=== PATIENT | female | born 1995 | race Caucasian/White ===

== ENCOUNTER 2016-11-28 10:49 | Emergency (ER) | payer OTHER ==
[~2016-11-28] VITALS: Ht 170.2 cm; Wt 95.5 kg
[2016-11-28 11:05] VITALS: BP 135/89; PULSE 91; RESP 18; O2SAT 99
[2016-11-28] MEDS ORDERED: 0.9% Sodium Chloride 1,000 ML IV ONE (11:21)
[2016-11-28] MEDS ORDERED: Ondansetron 2 mg/mL 2 mL Inj IVPUSH ONE (11:25)
--- NOTE | 2016-11-28 11:27 | ED.REPORT ---
HPI-Abd Pain F Under 38 Date of Service Nov 28, 2016 ED Provider: Dung Mcclain MD History of Present Illness: 21 female here for nausea, abdominal pain and diarrhea. Onset 3 days ago. At this point is having diarrhea 5-6 times a day, loose liquid stools. No vomiting. Tried to eat applesauce but it made her stomach upset. Is tolerating small sips of water. No fever. No cough, chest pain, shortness of breath, URI symptoms. No Urinary symptoms. Is not sexually active. LMP 3 weeks ago. No vaginal discharge. Patient is a nurse on a telemetry floor in [place] and has recently had patient's with GI symptoms. Nursing Notes Stated Complaint: NAUSEA,ABD PAIN,DIARRHEA Chief Complaint: Female Abdominal Pain Nursing Notes Reviewed: Yes Allergies: Coded Allergies: azithromycin (Verified Allergy, Unknown, 11/28/16) codeine (Verified Adverse Reaction, Unknown, upset stomach, 11/28/16) Scheduled Loperamide (Loperamide) 2 Mg Capsule 2 MG PO Q6H Scheduled PRN Hydrocodone-Acetaminophen 5-325 mg (Hydrocodone-Acetaminophen 5-325 mg) 1 Each Tablet 1 TABLET PO Q4H PRN PRN For Pain Ondansetron ODT (Zofran ODT) 4 Mg Tablet 4 MG PO Q4H PRN PRN For Nausea General Time Seen by MD: 11:15 Chief Complaint Abdominal pain, Diarrhea moderate, Nausea Hx Obtained From: Patient Arrived By: Walk-in Onset Occurred: 3 days ago Context of Onset: Eating Symptom Duration: Intermittent Location: : Abdomen lower: Diffuse Quality: Cramping Radiation: : Does not radiate Severity: Current: Moderate Severity: Maximum: Moderate Similar Sx Previous: No Risk Factors 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 Past Medical History Past Medical History Notes: denies Review of Systems Basic Review of Systems Eyes: Vision NL, No discharge ENT: Hearing NL, No pain, No nasal congestion, No pharyngeal pain Allergy / Immune: No allergy Neurologic: NL mental status, No weakness, No numbness Psychiatric: Normal thought content Constitutional: Denies: Chills, Fatigue, Fever Respiratory: Denies: Dyspnea on exertion, Non-productive cough Cardiovascular: Denies: Chest pain, Edema GI: Reports: Abdominal pain, Anorexia, Diarrhea, Nausea, Denies: Vomiting Female: Denies: Dysuria, Flank pain Musculoskeletal: Denies: Back pain Complete sys rev & neg: except as marked. Physical Exam Initial Vital Signs Vital Signs (First) Date Time Temp Pulse Resp B/P Pulse Ox O2 Delivery O2 Flow Rate FiO2 11/28/16 11:05 36.8 91 18 135/89 99 Initial VS: Reviewed, Vital signs normal General/Constitutional: Awake, Alert, No acute distress, Well appearing Respiratory / Chest: Breath sounds NL, Breath sounds = bilat, No respiratory distress, No rales, No rhonchi, No wheezing Cardiovascular: Heart rate NL, Regular rhythm, Heart sounds NL, Peripheral circulation NL Abdomen: Atraumatic, Soft, McBurney's non-tender, No guarding, No rebound, BS normoactive, No distention, No hernia, No palpable mass, No pulsatile mass Tenderness/Guarding/Rebound: Positive: Tender LLQ... (Moderate), Tender RLQ... (Moderate) Back: Inspection NL, Non-tender, No CVA tenderness Head / Eyes: Normocephalic, PERRL Skin: Atraumatic, Color NL, No rash Interpretation & Diagnostics Lab Results Interpretation Result Diagram: 11/28/16 1120 11/28/16 1120 Test 11/28/16 11:20 White Blood Count 8.9th/mm3 (3.8-10.1) Red Blood Count 5.06mil/mm3 (3.90-5.20) Hemoglobin 13.9g/dL (12.0-15.6) Hematocrit 42.0% (35.0-46.0) Mean Corpuscular Volume 83.0fL (81-100) Mean Corpuscular Hemoglobin 27.5pg (27.0-35.0) Mean Corpuscular Hemoglobin Concent 33.1% (32.0-37.0) Red Cell Distribution Width 13.7% (12.3-15.4) Platelet Count 359bil/L (150-400) Neutrophils (%) (Auto) 68.5% (40-74) Lymphocytes (%) (Auto) 21.3% (14-46) Monocytes (%) (Auto) 7.3% (4-12) Eosinophils (%) (Auto) 2.5% (0-5) Basophils (%) (Auto) 0.1% (0-3) Sodium Level 135mEq/L (134-144) Potassium Level 3.3mEq/L (3.5-5.2) Chloride Level 98mEq/L (97-108) Carbon Dioxide Level 21mmol/L (18-29) Blood Urea Nitrogen 7mg/dL (6-20) Creatinine 0.66mg/dL (0.57-1.00) Estimat Glomerular Filtration Rate 159mL/min (>59) Glucose Level 111mg/dL (60-99) Calcium Level 8.9mg/dL (8.5-10.1) Total Bilirubin 0.3mg/dL (0.0-1.2) Aspartate Amino Transf (AST/SGOT) 17U/L (0-50) Alanine Aminotransferase (ALT/SGPT) 20U/L (0-32) Alkaline Phosphatase 108U/L (25-150) Total Protein 8.0g/dL (6.4-8.4) Albumin 4.0g/dL (3.4-5.0) Lipase 20U/L (13-60) Re-Eval/Medical Decision Med Decision/Clinical Course Med Decision/Clinical Course: 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 Discussed this with the patient. We will prescribe Vicodin, Zofran, Imodium Discharge & Departure Shift Change Sign-Out Laboratory Evaluation: Lab evaluation discussed Procedures: Results discussed Response to Therapy: Improved Primary Impression: Norovirus Disposition: Home Discharge Condition All VS Reviewed: Yes Condition: Stable Patient Instructions: Gastroenteritis (ED) Additional Instructions: You have been diagnosed with norovirus. Symptomatic care. Push fluids, light diet as tolerated. Use Imodium as needed for stool control. Use Vicodin as needed for pain. Zofran as needed for nausea. No work within 24 hours of fever or loose stool. Follow up if severe symptoms, unable tolerate by mouth or any other concerning symptoms Referrals: Trinidad Bonds MD (PCP) EDSupervising Provider for APC: Dung Mcclain MD, Linnea K ARNP Nov 28, 2016 11:27
[2016-11-28 11:37] LABS: Mean Corpuscular Hemoglobin 27.5 pg (27.0-35.0)
[2016-11-28 11:38] LABS: BASOPHILS % (AUTO) 0.1 % (0-3); EOSINOPHILS % (AUTO) 2.5 % (0-5); MONOCYTES % (AUTO) 7.3 % (4-12); NEUTROPHILS % (AUTO) 68.5 % (40-74); Platelet Count 359 bil/L (150-400)
[2016-11-28] MEDS ORDERED: Potassium Chloride 20 mEq SR Tablet PO ONE (12:15)
[2016-11-28] MEDS ORDERED: ONDA4TAB9 PO (16:20)
[2016-11-28] MEDS ORDERED: LOPE2CAP PO (16:21)
[2016-11-28] MEDS ORDERED: HYDR-4003 PO (16:21)
[2016-11-28 16:40] VITALS: BP 148/77; PULSE 77; RESP 16
== END 2016-11-28 16:42 | disposition home or self-care (01) ==
LOC: SED 10:49
DX: A08.11 Acute gastroenteropathy due to Norwalk agent (principal); Z88.1 Allergy status to other antibiotic agents; Z88.8 Allergy status to other drugs, medicaments and biological substances
CPT/HCPCS: 36415; 80053; 81025; 83690; 85025; 87507; 96361; 96374; 96375; 99285; J2270; J2405; J7030